=== PATIENT | female | born 1955 | race Caucasian/White ===

== ENCOUNTER 2018-11-24 08:31 | Outpatient (CLI) | payer BC ==
[2018-11-24 09:12] LABS: Hemoglobin 14.7 g/dL (12.0-16.0); Mean Corpuscular Hemoglobin 28.9 pg (27.0-31.0); Mean Corpuscular Volume 87.4 fL (78.0-98.0); Mean Platelet Volume 7.1 fL (7.4-10.4); Platelet Count 232 thou/uL (130-400); RBC Distribution Width 12.4 % (11.5-14.5); Red Blood Cell (RBC) Count 5.11 mill/uL (4.20-5.40); White Blood Cell (WBC) Count 4.6 thou/uL (4.8-10.8)
[2018-11-24 09:24] LABS: ALT (SGPT) 24 U/L (8-55); AST (SGOT) 26 U/L (5-34); Albumin 4.6 g/dL (3.4-4.8); Alkaline Phosphatase 62 U/L (40-150); Anion Gap 16 mmol/L (10-20); BUN (Urea Nitrogen) 10 mg/dL (9.8-20.1); Bilirubin, Total 0.6 mg/dL (0.2-1.2); Calc. Creatinine Clearance 0 mL/min (70-130); Calcium 10.1 mg/dL (7.8-10.44); Carbon Dioxide 26 mmol/L (23-31); Chloride 104 mmol/L (98-107); Cholesterol 238 mg/dl (< 200 Desired); Estimated GFR-MDRD 74; Globulin 2.8 g/dL (2.4-3.5); Glucose 112 mg/dL (80-115); HDL Cholesterol 79 mg/dL (>60 Neg Risk); LDL Cholesterol, Calculated 144 mg/dL; Potassium 4.1 mmol/L (3.5-5.1); Protein, Total 7.4 g/dL (6.0-8.3); Sodium 142 mmol/L (136-145); Triglycerides 77 mg/dL (Less than 150)
[2018-11-24 12:40] LABS: Free T4 (Free Thyroxine) 1.3 ng/dL (0.70-1.48)
[2018-11-24 12:42] LABS: Vitamin D, 25 Hydroxy 34.3 ng/ml (> 30.0)
--- NOTE | 2018-11-24 17:33 | ULT ---
ABDOMINAL ULTRASOUND: 11/24/18 Ultrasonography of the abdomen was performed for evaluation of nausea, vomiting and right lower quadr ant pain. The liver and spleen appear normal. The pancreas was partially shadowed by gas but the visible areas appear normal. The gallbladder contain no signs of stones or all thickening. The common bile duct wa s a normal 4 mm wide. The right kidney was 9.4 cm long and the left was 9.2 cm, both appear normal. T he aorta and inferior vena cava were unremarkable. IMPRESSION: Unremarkable abdominal ultrasound. POS: HOME
--- NOTE | 2018-11-24 17:37 | ULT ---
PELVIC ULTRASOUND WITH ENDOVAGINAL IMAGING 11/24/18 Ultrasonography of the pelvis was performed with both abdominal and endovaginal probes in an attempt to better see the ovaries. The uterus is atrophic and measures 3.7 x 1.9 x 2.6 cm. The endometrium is 3 mm wide which is normal. Neither the left nor the right ovary were convincingly identified. I believe there is some fleeting g limpses of them, but there were no measurable or identified with certainty. There was no adnexal mas s or cysts seen. There is no free fluid present. IMPRESSION: Atrophic uterus. Ovaries not definitely seen. No focal pelvic pathology seen. POS: HOME
== END 2018-11-24 08:32 | disposition home or self-care (01) ==
LOC: BURULT 08:31
PROVIDERS: ATTEND Nurse Practitioner Family
DX: Z13.220 Encounter for screening for lipoid disorders (principal); R03.0 Elevated blood-pressure reading, without diagnosis of hypertension; E55.9 Vitamin D deficiency, unspecified; R42 Dizziness and giddiness; R53.83 Other fatigue; R11.2 Nausea with vomiting, unspecified; R10.31 Right lower quadrant pain; R50.9 Fever, unspecified; Z86.73 Personal history of transient ischemic attack (TIA), and cerebral infarction without residual deficits
CPT/HCPCS: 36415; 76700; 76856; 80053; 80061; 82306; 84439; 84443; 84481; 85027